=== PATIENT | male | born 1965 | race Caucasian/White ===

== ENCOUNTER 2019-04-26 09:37 | Emergency (ER) | payer OTHER ==
--- NOTE | 2019-04-26 10:59 | EDM.PDOC ---
ED HPI GENERAL MEDICAL PROBLEM - General Stated Complaint: DRAIN FLUID Time Seen by Provider: 04/26/19 10:30 Source of Information: Reports: Patient, Provider History Limitations: Reports: No Limitations - History of Present Illness INITIAL COMMENTS - FREE TEXT/NARRATIVE: sent over from clinic with new onset ascites. Patient with known pancreatic cancer and stomach cancer, and by his description peritoneal involvement. Seen in walk-in clinic yesterday and given miralax for constipation. In-between chemotherapy rounds. Patient states that over the past 2 weeks, he has had some constipation and vague abdominal bloating. In the past week he has noticed some increasing distention of his abdomen, and now it is very tight and tense. He had a bowel movement X3 yesterday after increased miralax recommended by acute care clinic, but states that didn't change the bloating. He has otherwise felt well and gone back to work some. He has never had this before. He denies nausea, fever , chills, sweats, has very minimal back pain. His energy level is ok. No change in urination. Abdominal Pain Score (Numeric/FACES): 4 - Related Data Allergies Allergy/AdvReac Type Severity Reaction Status Date / Time No Known Allergies Allergy Verified 04/26/19 20:43 Home Meds: Home Meds Hydrocodone/Acetaminophen [Hydrocodon-Acetaminophen 5-325] 1 tab PO Q4H PRN [History] OLANZapine [Olanzapine] 10 mg PO BEDTIME 04/26/19 [History] Ondansetron [Zofran Odt] 8 mg PO BID PRN 04/26/19 [History] Prochlorperazine [Compazine] 10 mg PO QID PRN 04/26/19 [History] buPROPion [buPROPion XL] 150 mg PO DAILY 04/26/19 [History] Past Medical History Oncologic (Cancer) History: Reports: Pancreatic Other Oncologic History: stomach cancer also. Extensive peritoneal mets. Social & Family History - Family History Family Medical History: Noncontributory - Tobacco Use Smoking Status *Q: Unknown Ever Smoked - Alcohol Use Alcohol Use History: No - Recreational Drug Use Recreational Drug Use: No - Living Situation & Occupation Occupation: Employed ED ROS GENERAL - Review of Systems Review Of Systems: ROS reveals no pertinent complaints other than HPI. ED EXAM, GENERAL - Physical Exam Exam: See Below Free Text/Narrative:: General: alert, pleasant, cachectic. Head atraumatic, neck supple. Lungs are clear throughout with no wheezes or crackles. Heart is regular rate and rhythm. Peripheral pulses +2, no lower extremity edema. Gait is normal and muscle strength equal side to side. Abdomen has present bowel sounds, and significant distention suggesting ascites. It is completely nontender with no rebound or guarding. Following paracentesis, distention resolved, remains nontender. ED GENERAL MEDICAL PROCEDURES - Additional/Other Procedure(s) Other (Free Text) Procedure(s): Ultrasound was used to identify a fluid pocket clear of bowel or other intra- abdominal organs. The right lower quadrant was marked at the entry point and there was noted to be at least 5 cm of fluid present underneath the abdominal wall. Area was prepped with chlorhexidine swabs 3 and then draped sterilely. The skin was anesthetized with 1% lidocaine and then a scalpel was used to make a small incision through the skin. Skin was dragged laterally 1-2cm to create a catheter tunnel. The catheter with a trocar was introduced, being careful to maintain sterile technique and the trocar was advanced through the peritoneal wall to a depth of 2-3 cm. Fluid was able to be drawn back freely. At this time the catheter was advanced off the trocar to a depth of 7cm, being careful not to advance the trocar any further. Approximately 60cc of fluid were withdrawn into a sterile syringe and used to fill each of the available collection vials for studies. A bag was attached to the catheter filled using manual suction provided by 60cc syringe. Approximately 3900ml clear yellow fluid were withdrawn from the abdomen for a total of 3900L removed. Patient tolerated procedure well with no immediate complications. Course - Vital Signs Text/Narrative:: patient sent from clinic, known extensive cancer mets in peritoneum, new ascites. Otherwise feeling well. I spoke with his oncology physician, Dr. Bentley, who requested fluid be sent for cytology. The patient's liver function is otherwise reported to be ok at this time. labs obtained, consented patient for paracentesis after discussion of risks and benefits. Last Recorded V/S: Last Vital Signs Temp 36.4 C 04/26/19 09:37 Pulse 75 04/26/19 09:37 Resp 18 04/26/19 09:37 BP 163/95 H 04/26/19 09:37 Pulse Ox 98 04/26/19 09:37 - Orders/Labs/Meds Labs: Laboratory Tests 04/26/19 04/26/19 04/26/19 Range/Units 11:05 11:05 11:05 WBC 11.2 (4.5-12.0) X10-3/uL RBC 4.17 L (4.30-5.75) x10(6)uL Hgb 11.4 L (13.5-17.8) g/dL Hct 35.3 (30.0-51.3) % MCV 84.7 (80-96) fL MCH 27.4 L (27.7-33.6) pg MCHC 32.3 (32.2-35.4) g/dL RDW 15.7 H (11.5-15.5) % Plt Count 975 H* (125-369) X10(3)uL MPV 6.2 L (7.4-10.4) fL Neut % (Auto) 80.9 (46-82) % Lymph % (Auto) 7.5 L (13-37) % [place] % (Auto) 9.1 (4-12) % Eos % (Auto) 2 (1.0-5.0) % Baso % (Auto) 1 (0-2) % Neut # (Auto) 9.1 H (1.6-8.3) # Lymph # (Auto) 0.8 (0.6-5.0) # [place] # (Auto) 1.0 (0.0-1.3) # Eos # (Auto) 0.2 (0.0-0.8) # Baso # (Auto) 0.1 (0.0-0.2) # PT 9.9 (8.7-11.1) INR 1.02 (0.89-1.13) Sodium 134 L (135-145) mmol/L Potassium 4.7 (3.5-5.3) mmol/L Chloride 97 L (100-110) mmol/L Carbon Dioxide 31 (21-32) mmol/L BUN 19 H (7-18) mg/dL Creatinine 0.9 (0.70-1.30) mg/dL Est Cr Clr Drug Dosing TNP Estimated GFR (MDRD) > 60 (>60) BUN/Creatinine Ratio 21.1 H (9-20) Glucose 101 (80-116) mg/dL Calcium 8.7 (8.6-10.2) mg/dL Total Bilirubin 0.3 (0.1-1.3) mg/dL AST 34 H (5-25) IU/L ALT 30 (12-36) U/L Alkaline Phosphatase 530 H (56-112) IU/L Lactate Dehydrogenase 210 (85-227) U/L C-Reactive Protein (0.5-0.9) mg/dL Total Protein 7.1 (6.0-8.0) g/dL Albumin 2.9 L (3.5-5.2) g/dL Globulin 4.2 g/dL Albumin/Globulin Ratio 0.7 / Range/Units 11:05 WBC (4.5-12.0) X10-3/uL RBC (4.30-5.75) x10(6)uL Hgb (13.5-17.8) g/dL Hct (30.0-51.3) % MCV (80-96) fL MCH (27.7-33.6) pg MCHC (32.2-35.4) g/dL RDW (11.5-15.5) % Plt Count (125-369) X10(3)uL MPV (7.4-10.4) fL Neut % (Auto) (46-82) % Lymph % (Auto) (13-37) % [place] % (Auto) (4-12) % Eos % (Auto) (1.0-5.0) % Baso % (Auto) (0-2) % Neut # (Auto) (1.6-8.3) # Lymph # (Auto) (0.6-5.0) # [place] # (Auto) (0.0-1.3) # Eos # (Auto) (0.0-0.8) # Baso # (Auto) (0.0-0.2) # PT (8.7-11.1) INR (0.89-1.13) Sodium (135-145) mmol/L Potassium (3.5-5.3) mmol/L Chloride (100-110) mmol/L Carbon Dioxide (21-32) mmol/L BUN (7-18) mg/dL Creatinine (0.70-1.30) mg/dL Est Cr Clr Drug Dosing Estimated GFR (MDRD) (>60) BUN/Creatinine Ratio (9-20) Glucose (80-116) mg/dL Calcium (8.6-10.2) mg/dL Total Bilirubin (0.1-1.3) mg/dL AST (5-25) IU/L ALT (12-36) U/L Alkaline Phosphatase (56-112) IU/L Lactate Dehydrogenase (85-227) U/L C-Reactive Protein 5.2 H* (0.5-0.9) mg/dL Total Protein (6.0-8.0) g/dL Albumin (3.5-5.2) g/dL Globulin g/dL Albumin/Globulin Ratio Meds: Medications Discontinued Medications Generic Name Dose Route Start Last Admin Trade Name Freq PRN Reason Stop Dose Admin Albumin Human 100 mls @ 100 mls/hr 04/26/19 14:15 04/26/19 14:24 Flexbumin 25% IV 04/26/19 15:14 100 mls/hr ONETIME ONE Administration - Re-Assessments/Exams Free Text/Narrative Re-Assessment/Exam: 04/28/19 labs reviewed, patient with increased platelets, normal WBC count, CRP elevated. LFTs and INR normal. Renal function also normal. Given his otherwise well appearance, suspect they are related to ongoing cancer. 3900-4000cc clear yellow fluid drained from abdomen; see procedure note. Studies are send out to [facility], will culture fluid here. Patient feeling much better following procedure. I think antibiotics not indicated at this time , lab aware to report positive culture immediately. Discussed with patient aftercare and also that if he has any changes in abdominal pain, fever, nausea, or otherwise feeling unwell should be immediately evaluated. Recommended f/u in clinic later this week. All questions answered. Departure - Departure Time of Disposition: 14:36 Disposition: Home, Self-Care 01 Condition: Fair Clinical Impression: Ascites, Pancreatic cancer - Discharge Information *PRESCRIPTION DRUG MONITORING PROGRAM REVIEWED*: Not Applicable *COPY OF PRESCRIPTION DRUG MONITORING REPORT IN PATIENT ZEHRA: Not Applicable Instructions: Paracentesis, Care After Referrals: Robbie Garvey MD [Primary Care Provider] - Forms: ED Department Discharge Additional Instructions: keep site of paracentesis covered change bandaid as needed - can leave current one on for 24 hours if expanding redness around site of injection, can be evaluated in clinic for possible infection, though this is highly unlikely slight leakage of yellowish fluid is normal, and should resolve within a day or two. However, ongoing leaking is not normal and should also be evaulated.
[2019-04-26] MEDS: Albumin 25% 100 ML IV ONE (14:24)
[2019-04-28 08:38] LABS: COMMENTS: COMMENTS
== END 2019-04-26 15:22 | disposition home or self-care (01) ==
LOC: FB.ED 09:37
DX: C25.9 Malignant neoplasm of pancreas, unspecified (principal); R18.8 Other ascites; C16.9 Malignant neoplasm of stomach, unspecified; Z79.899 Other long term (current) drug therapy
CPT/HCPCS: 36415; 49083; 80053; 83615; 85025; 85610; 86140; 87070; 87205; 88341; 88342; 89051; 96365; 99284; P9047

== ENCOUNTER 2019-04-28 10:26 | Emergency (ER) | payer OTHER ==
[2019-04-28] MEDS ORDERED: Ciprofloxacin in D5W 400 MG in Premix Bag 1 BAG IV ONE ×2 (12:40)
--- NOTE | 2019-04-28 12:49 | EDM.PDOC ---
ED HPI GENERAL MEDICAL PROBLEM - General Chief Complaint: Abdominal Pain Stated Complaint: BRUISING ON ARM Time Seen by Provider: 04/28/19 10:28 Source of Information: Reports: Patient History Limitations: Reports: No Limitations - History of Present Illness INITIAL COMMENTS - FREE TEXT/NARRATIVE: patient is a 54 yo male who presents today with new bruising on his arm and forearm. Also increased fatigue, feeling a bit lightheaded. Seen here in ER two days ago with new ascites and paracentesis performed. He still has some swelling of abdomen. he denies any other symptoms such as cough, shortness of breath, URI symptoms, abdominal pain, nausea, change in bowel habits. No fever. history pancreatic and stomach cancer, peritoneal involvement. In-between chemo rounds waiting on insurance to approve. abdominal Pain Score (Numeric/FACES): 4 - Related Data Allergies Allergy/AdvReac Type Severity Reaction Status Date / Time No Known Allergies Allergy Verified 04/26/19 20:43 Home Meds: Home Meds Hydrocodone/Acetaminophen [Hydrocodon-Acetaminophen 5-325] 1 tab PO Q4H PRN [History] OLANZapine [Olanzapine] 10 mg PO BEDTIME 04/26/19 [History] Ondansetron [Zofran Odt] 8 mg PO BID PRN 04/26/19 [History] Prochlorperazine [Compazine] 10 mg PO QID PRN 04/26/19 [History] buPROPion [buPROPion XL] 150 mg PO DAILY 04/26/19 [History] Ciprofloxacin HCl [Cipro] 500 mg PO BID 14 Days #28 tablet 04/28/19 [Rx] Past Medical History HEENT History: Reports: Impaired Vision Psychiatric History: Reports: Depression Oncologic (Cancer) History: Reports: Pancreatic Other Oncologic History: stomach cancer also. Extensive peritoneal mets. - Infectious Disease History Infectious Disease History: Reports: Chicken Pox Social & Family History - Family History Family Medical History: Noncontributory - Tobacco Use Smoking Status *Q: Current Every Day Smoker Years of Tobacco use: 30 Packs/Tins Daily: 1 Second Hand Smoke Exposure: No - Caffeine Use Caffeine Use: Reports: Coffee - Alcohol Use Alcohol Use History: No - Recreational Drug Use Recreational Drug Use: No - Living Situation & Occupation Occupation: Employed ED ROS GENERAL - Review of Systems Review Of Systems: ROS reveals no pertinent complaints other than HPI. ED EXAM, GENERAL - Physical Exam Exam: See Below Free Text/Narrative:: General: alert, tired appearing. Head atraumatic, pupils equal and reactive, throat moist and no redness. Lungs clear throughout. Heart regular. Abdomen mild distention, soft, nontender. Peripheral pulses +2. There is bruising present on r antecubital fossa and back of right hand. No lower extremity edema. Course - Vital Signs Text/Narrative:: repeat labs obtained. some abdominal fluid, but much less than Friday. Exam otherwise benign, vitals stable. Last Recorded V/S: Last Vital Signs Temp 36.7 C 04/28/19 10:35 Pulse 103 H 04/28/19 10:35 Resp 18 04/28/19 10:35 BP 125/83 04/28/19 10:35 Pulse Ox 98 04/28/19 10:35 - Orders/Labs/Meds Labs: Laboratory Tests 04/28/19 04/28/19 04/28/19 Range/Units 10:50 10:50 10:50 WBC 11.5 (4.5-12.0) X10-3/uL RBC 4.15 L (4.30-5.75) x10(6)uL Hgb 11.3 L (13.5-17.8) g/dL Hct 34.4 (30.0-51.3) % MCV 82.9 (80-96) fL MCH 27.3 L (27.7-33.6) pg MCHC 32.9 (32.2-35.4) g/dL RDW 15.1 (11.5-15.5) % Plt Count 909 H (125-369) X10(3)uL MPV 6.2 L (7.4-10.4) fL Add Manual Diff Yes Neutrophils % (Manual) 89 H (46-82) % Lymphocytes % (Manual) 5 L (13-37) % Monocytes % (Manual) 5 (4-12) % Eosinophils % (Manual) 1 (0-5) % Sodium 133 L (135-145) mmol/L Potassium 4.7 (3.5-5.3) mmol/L Chloride 98 L (100-110) mmol/L Carbon Dioxide 26 (21-32) mmol/L BUN 15 (7-18) mg/dL Creatinine 0.9 (0.70-1.30) mg/dL Est Cr Clr Drug Dosing TNP Estimated GFR (MDRD) > 60 (>60) BUN/Creatinine Ratio 16.7 (9-20) Glucose 103 (80-116) mg/dL Calcium 8.3 L (8.6-10.2) mg/dL Total Bilirubin 0.4 (0.1-1.3) mg/dL AST 31 H (5-25) IU/L ALT 27 (12-36) U/L Alkaline Phosphatase 553 H (56-112) IU/L C-Reactive Protein 5.5 H* (0.5-0.9) mg/dL Total Protein 6.6 (6.0-8.0) g/dL Albumin 2.8 L (3.5-5.2) g/dL Globulin 3.8 g/dL Albumin/Globulin Ratio 0.7 Meds: Medications Discontinued Medications Generic Name Dose Route Start Last Admin Trade Name Freq PRN Reason Stop Dose Admin Ciprofloxacin/Dextrose 400 mg/ 200 mls @ 200 mls/hr 04/28/19 12:40 04/28/19 13:51 Premix IV 04/28/19 13:39 200 mls/hr ONETIME ONE Administration Lidocaine/Prilocaine Confirm 04/28/19 12:57 Emla Crm Administered 04/28/19 12:58 Dose 5 gm .ROUTE .STK-MED ONE - Re-Assessments/Exams Free Text/Narrative Re-Assessment/Exam: 04/28/19 labs reviewed. Discussed results with patient. Minimal increase in CRP, WBCs now with left shift. Platelets still high at 900. Given overall clinical picture, recommended at this point treatment for possible SBP as this can be a quite subtle diagnosis and would be very dangerous. We reviewed risks and benefits of repeat paracentesis and he would like to try and get fluid off if possible. Also previous cultures are negative so far and may benefit from obtaining new sample. bedside US performed. Initially fluid pocket present, but at time of procedure only a fluid pocket of max 2cm was seen clear of bowel, and was very near liver. We again discussed risks and benefits and decided not to perform the procedure. I offered possibility of setting up outpatient removal of fluid with IR in [place], and also could empirically treat with antibiotics at this time for SBP with close followup. Given his stable vitals and nontoxic appearance would be ok outpatient. He opted for the latter. Reviewed UpToDate and associated literature with pharmacy regarding treatment regimen. Gram + on stain 2 days ago, though very few, and cultures so far negative. After considering available options, ciprofloxin appeared to have best overall coverage (despite lesser gram + coverage) and penetration into ascitic fluid. Dose IV given here and 14 day course given for home. I suspect his bruising is related to previous blood draws and trauma given its location. Return precautions discussed and all questions answered. Departure - Departure Time of Disposition: 14:30 Disposition: Home, Self-Care 01 Condition: Fair Clinical Impression: Spontaneous bacterial peritonitis - Discharge Information *PRESCRIPTION DRUG MONITORING PROGRAM REVIEWED*: Not Applicable *COPY OF PRESCRIPTION DRUG MONITORING REPORT IN PATIENT ZEHRA: Not Applicable Prescriptions: Ciprofloxacin HCl [Cipro] 500 mg PO BID 14 Days #28 tablet Referrals: Robbie Garvey MD [Primary Care Provider] - Forms: ED Department Discharge, ED Return to Work/School Form Additional Instructions: start antibiotic tabs tonight for 14 day course given one dose IV in the hospital if fever, abdominal pain, or other symptoms, should be re-evaluated by physician recommend followup in clinic at end of week for recheck
[2019-04-28] MEDS ORDERED: Lidocaine/Prilocaine 2.5-2.5% Crm 5 GM Tube ONE (12:57)
[2019-04-28] MEDS ORDERED: Sodium Chloride 0.9% 10 ML Syringe FLUSH PRN (14:50)
[2019-04-28] MEDS ORDERED: Lidocaine/Prilocaine 2.5-2.5% Crm 5 GM Tube TOP ONE (14:51)
== END 2019-04-28 15:13 | disposition home or self-care (01) ==
LOC: FB.ED 10:26
DX: K65.2 Spontaneous bacterial peritonitis (principal); S60.221A Contusion of right hand, initial encounter; S50.01XA Contusion of right elbow, initial encounter; F32.9 Major depressive disorder, single episode, unspecified; C25.9 Malignant neoplasm of pancreas, unspecified; C16.9 Malignant neoplasm of stomach, unspecified; Z79.899 Other long term (current) drug therapy; F17.210 Nicotine dependence, cigarettes, uncomplicated; X58.XXXA Exposure to other specified factors, initial encounter
CPT/HCPCS: 36415; 80053; 85025; 86140; 96365; 99284; A9270; J0744; J1642

== ENCOUNTER 2019-05-16 22:49 | Emergency (ER) | payer OTHER ==
[2019-05-16] MEDS ORDERED: Albuterol/Ipratropium 3.0-0.5 MG/3 ML Neb Soln NEB ONE (22:53)
[2019-05-16] MEDS ORDERED: methylPREDNISolone Sodium Succinate 125 MG/2 ML SDV IM ONE (22:54)
[2019-05-17] MEDS ORDERED: Sodium Chloride 0.9% 500 ML IV ONE (00:01)
[2019-05-17] MEDS ORDERED: Hydrocortisone Sodium Succinate 100 MG/2 ML SDV IVPUSH ONE (00:09)
[2019-05-17] MEDS: Sodium Chloride 0.9% 10 ML Syringe FLUSH PRN ×3 (00:18→00:20)
--- NOTE | 2019-05-17 00:42 | EDM.PDOC ---
ED HPI GENERAL MEDICAL PROBLEM - General Stated Complaint: SOB Time Seen by Provider: 05/16/19 22:55 Source of Information: Reports: Patient History Limitations: Reports: No Limitations - History of Present Illness INITIAL COMMENTS - FREE TEXT/NARRATIVE: Patient is a 54 YO WM who has a h/o pancreatic CA presented to the ED because cough and cold,wheezing,dyspnea for 3 days. His cough is mostly non-productive, denies any fever or chills. His dyspnea got worse tonight and in milld respiratory distress upon his arrival in the ED. - Related Data Allergies Allergy/AdvReac Type Severity Reaction Status Date / Time No Known Allergies Allergy Verified 04/26/19 20:43 Home Meds: Home Meds Hydrocodone/Acetaminophen [Hydrocodon-Acetaminophen 5-325] 1 tab PO Q4H PRN [History] OLANZapine [Olanzapine] 10 mg PO BEDTIME 04/26/19 [History] Ondansetron [Zofran Odt] 8 mg PO BID PRN 04/26/19 [History] Prochlorperazine [Compazine] 10 mg PO QID PRN 04/26/19 [History] buPROPion [buPROPion XL] 150 mg PO DAILY 04/26/19 [History] Ciprofloxacin HCl [Cipro] 500 mg PO BID 14 Days #28 tablet 04/28/19 [Rx] Albuterol Sulfate [Albuterol Sulfate Hfa] 2 inhalation IH Q4H PRN #1 hfa.aer.ad 05/17/19 [Rx] Azithromycin 250 mg PO DAILY #6 tablet 05/17/19 [Rx] predniSONE [Prednisone] 40 mg PO DAILY #10 tablet 05/17/19 [Rx] Past Medical History HEENT History: Reports: Impaired Vision Psychiatric History: Reports: Depression Oncologic (Cancer) History: Reports: Pancreatic Other Oncologic History: stomach cancer also. Extensive peritoneal mets. - Infectious Disease History Infectious Disease History: Reports: Chicken Pox Social & Family History - Family History Family Medical History: Noncontributory - Caffeine Use Caffeine Use: Reports: Coffee - Living Situation & Occupation Occupation: Employed ED ROS GENERAL - Review of Systems Review Of Systems: See Below Constitutional: Reports: No Symptoms HEENT: Reports: No Symptoms Respiratory: Reports: Shortness of Breath, Wheezing, Cough. Denies: Sputum Cardiovascular: Reports: No Symptoms Endocrine: Reports: No Symptoms, Fatigue, High Glucose GI/Abdominal: Reports: No Symptoms, Abdominal Pain : Reports: No Symptoms, Discharge Musculoskeletal: Reports: No Symptoms Skin: Reports: No Symptoms Neurological: Reports: No Symptoms, Confusion Psychiatric: Reports: No Symptoms Immunologic: Reports: No Symptoms ED EXAM, GENERAL - Physical Exam Exam: See Below Exam Limited By: Altered Mental Status General Appearance: Alert, WD/WN, No Apparent Distress Eye Exam: Bilateral Eye: PERRL Ears: Normal External Exam, Normal Canal Ear Exam: Bilateral Ear: Auricle Normal, Canal Normal Nose: Normal Inspection, Normal Mucosa, No Blood Throat/Mouth: Normal Inspection, Normal Lips, Normal Teeth, Normal Gums Head: Atraumatic, Normocephalic Neck: Normal Inspection, Supple, Non-Tender Respiratory/Chest: Chest Non-Tender, Respiratory Distress, Rhonchi, Wheezing. No: Crackles Cardiovascular: Normal Peripheral Pulses, Regular Rate, Rhythm, No Edema, No Gallop, No JVD, No Murmur GI/Abdominal: Normal Bowel Sounds, Soft, Non-Tender, No Organomegaly (Male) Exam: No Hernia, Normal Inspection, Normal Prostate Extremities: Normal Inspection, Normal Range of Motion, Non-Tender, No Pedal Edema, Joint Swelling Neurological: Alert, Oriented, CN II-XII Intact, Normal Cognition, Normal Gait Psychiatric: Normal Affect Skin Exam: Warm, Dry Lymphatic: No Adenopathy Course - Vital Signs Text/Narrative:: CXR- no acute pulmonary dse, widened ICS Duoneb 2 doses x2 Solumedrol 125 mg IM 500 ml saline bolus Solu-cortef 100 mg IV x1 His breathing improved significantly with the above treatment. He was vitally stable with oxygen saturation of 99-100% on RA prior to discharge Last Recorded V/S: Last Vital Signs Temp 36.4 C 05/16/19 22:49 Pulse 100 05/16/19 22:49 Resp 27 H 05/16/19 22:49 BP 89/58 L 05/16/19 22:49 Pulse Ox 95 05/16/19 22:49 - Orders/Labs/Meds Orders: Active Orders 24 hr Category Date Time Status RT Aerosol Therapy [RC] ASDIRECTED Care 05/16/19 22:54 Active Chest 1V Frontal [CR] Stat Exams 05/16/19 22:53 Taken Meds: Medications Discontinued Medications Generic Name Dose Route Start Last Admin Trade Name Freq PRN Reason Stop Dose Admin Albuterol/Ipratropium 6 ml 05/16/19 22:53 05/16/19 23:03 Duoneb 3.0-0.5 Mg/3 Ml NEB 05/16/19 22:54 6 ml ONETIME ONE Administration Hydrocortisone Sodium Succinate 100 mg 05/17/19 00:09 05/17/19 00:18 Solu-Cortef IVPUSH 05/17/19 00:10 100 mg ONETIME ONE Administration Sodium Chloride 500 mls @ 500 mls/hr 05/17/19 00:01 05/17/19 00:03 Normal Saline IV 05/17/19 01:00 500 mls/hr .BOLUS ONE Administration Methylprednisolone Sodium Succinate 125 mg 05/16/19 22:54 05/16/19 23:04 Solu-Medrol IM 05/16/19 22:55 125 mg ONETIME ONE Administration Sodium Chloride 10 ml 05/17/19 01:43 05/17/19 00:20 Saline Flush FLUSH 10 ml ASDIRECTED PRN Administration Keep Vein Open Departure - Departure Time of Disposition: 00:35 Disposition: Home, Self-Care 01 Condition: Good Clinical Impression: COPD (chronic obstructive pulmonary disease) - Discharge Information *PRESCRIPTION DRUG MONITORING PROGRAM REVIEWED*: No *COPY OF PRESCRIPTION DRUG MONITORING REPORT IN PATIENT ZEHRA: No Prescriptions: Albuterol Sulfate [Albuterol Sulfate Hfa] 2 inhalation IH Q4H PRN #1 hfa.aer.ad PRN Reason: dyspnea/wheezing Azithromycin 250 mg PO DAILY #6 tablet predniSONE [Prednisone] 40 mg PO DAILY #10 tablet Instructions: Chronic Obstructive Pulmonary Disease Exacerbation Referrals: PCP,None [Primary Care Provider] - Forms: ED Department Discharge Additional Instructions: please read discharge instructions on COPD albuterol inhaler 2 puffs every 4-6 hours as needed for wheezing and difficulty of breathing [id number]-branden as directed prednisone 40 mg daily for 5 days keep your oncology appointment tomorrow - My Orders Last 24 Hours: My Active Orders 05/16/19 22:53 Chest 1V Frontal [CR] Stat 05/16/19 22:54 RT Aerosol Therapy [RC] ASDIRECTED - Assessment/Plan Last 24 Hours: My Active Orders 05/16/19 22:53 Chest 1V Frontal [CR] Stat 05/16/19 22:54 RT Aerosol Therapy [RC] ASDIRECTED
== END 2019-05-17 00:55 | disposition home or self-care (01) ==
LOC: FB.ED 22:49
DX: J44.9 Chronic obstructive pulmonary disease, unspecified (principal); F32.9 Major depressive disorder, single episode, unspecified; Z79.52 Long term (current) use of systemic steroids
CPT/HCPCS: 71045; 94640; 96361; 96374; 96375; 99284; J1720; J2930; J7040; J7620-GY